=== PATIENT | female | born 1955 | race Caucasian/White ===

== ENCOUNTER → 2019-11-11 09:30 | Outpatient (BNVA) | payer MEDICARE, SELFPAY | PROVIDERS: Family Provider Electrodiagnostic Medicine; PCP Electrodiagnostic Medicine; Referring Provider Family Medicine; Visit Provider Internal Medicine Rheumatology | DX: M06.09 Rheumatoid arthritis without rheumatoid factor, multiple sites (principal); M15.9 Polyosteoarthritis, unspecified; Z79.899 Other long term (current) drug therapy; Z79.52 Long term (current) use of systemic steroids; E11.9 Type 2 diabetes mellitus without complications | CPT/HCPCS: 36415; 85651; 86140; 99213 ==

== ENCOUNTER 2020-04-11 12:56 | Outpatient (CLI) | payer MEDICARE, SELFPAY ==
--- NOTE | 2020-04-11 13:22 | XR_ITS ---
WS: [id number] FINGER LEFT TECHNIQUE: 3 views of the left First finger CLINICAL INFORMATION: CLOSED LEFT THUMB FX/ LEFT THUMB PAIN COMPARISON: March 15, 2019 FINDINGS: Nondisplaced fracture involving the base of the first distal phalanx with intra-articular extension. No significant displacement. Mild widening on the lateral view measuring 1 mm. XR/XR finger LT min 2V [id number] IMPRESSION: Nondisplaced fracture involving the base of the first distal phalanx with intra -articular extension.
== END 2020-04-11 12:57 | disposition home or self-care (01) ==
PROVIDERS: Family Provider Electrodiagnostic Medicine; PCP Electrodiagnostic Medicine; Visit Provider Electrodiagnostic Medicine
DX: S62.502A Fracture of unspecified phalanx of left thumb, initial encounter for closed fracture (principal); X58.XXXA Exposure to other specified factors, initial encounter
CPT/HCPCS: 73140

== ENCOUNTER 2020-04-13 14:21 | Outpatient (CLI) | payer MEDICARE, SELFPAY ==
--- NOTE | 2020-04-13 14:30 | XR_ITS ---
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 Advanced degenerative narrowing involving the seco nd DIP unchanged. Moderate narrowing involving the third DIP. No significant periarticular erosions. Mild narrowing of the radiocarpal joint. No acute fractures. XR/XR hand RT min 3V* [id number] IMPRESSION: 1. 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 2. Moderate to advanced degenerative narrowing at the second and third DIP jarad nts worse at the second DIP. 3. No acute thumb fractures
== END 2020-04-13 14:22 | disposition home or self-care (01) ==
LOC: RADWPI 14:23
PROVIDERS: Family Provider Electrodiagnostic Medicine; PCP Electrodiagnostic Medicine; Visit Provider Electrodiagnostic Medicine
DX: M19.041 Primary osteoarthritis, right hand (principal)
CPT/HCPCS: 73130

== ENCOUNTER 2021-03-20 13:30 | Outpatient (CLI) | payer MEDICARE, SELFPAY ==
--- NOTE | 2021-03-20 13:41 | XR_ITS ---
WS: [id number] LEFT RIBS, MULTIPLE VIEWS HISTORY: RIB PAIN, LEFT SIDED COMPARISON: None available. Ribs: Nondisplaced anterior LEFT seventh rib fracture. No additional fractures. Lungs and mediastinum: No pneumothorax or pulmonary contusion. No effusion. XR/XR ribs LT 2V* [id number] IMPRESSION: Nondisplaced anterior LEFT seventh rib fracture.
== END 2021-03-20 13:31 | disposition home or self-care (01) ==
PROVIDERS: PCP Electrodiagnostic Medicine; Visit Provider Electrodiagnostic Medicine
DX: S22.32XA Fracture of one rib, left side, initial encounter for closed fracture (principal); X58.XXXA Exposure to other specified factors, initial encounter
CPT/HCPCS: 71100

== ENCOUNTER 2021-07-10 11:40 | Outpatient (CLI) | payer MEDICARE, SELFPAY ==
[2021-07-10 11:00] VITALS: BMI 20.6
--- NOTE | 2021-07-10 12:03 | ECG_ITS ---
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 Interpretive Statements NAME OF STUDY: LEXISCAN SESTAMIBI STRESS TEST INDICATION: Chest Pain, PROCEDURE: At the baseline, the EKG revealed sinus bradycardia rate of 50 bpm. Poor R wave progression. No significant ST-T changes.. The baseline blood pressure was 141/69 mm Hg with a heart rate of50 beats/min. Lexiscan was infused over a period of 20 seconds. A total of 0.4 milligrams of Lexiscan was infused. The stress phase was continued for a total of 5 minutes. Heart rate at the end of the stress phase was 76 with a blood pressure 145/65. The EKG at the peak infusion revealed no significant changes. Sestamibi was injected 20 seconds after the Lexiscan infusion. Blood pressure at the end of the recovery phase was 124/53 with a heart rate of 63 per minute. CONCLUSION: 3 1. No significant EKG changes with the LexiScan infusion 2. No LexiScan induced chest pain or cardiac arrhythmia 3. Normal blood pressure and heart rate response 4. Sestamibi/sestamibi perfusion scan pending; see separate report. Electronically Signed On 07-11-2021 0:59:46 CDT by Pritesh Erickson M.D. [email or web address]
--- NOTE | 2021-07-10 12:05 | NMCV_ITS ---
NM jemma perf SPECT r/s* [id number] Yvette Fajardo Age: 66 Gender: F : 1955 Exam Date: 07/10/2021 13:01 Ordering Phys: Junito Mclean DO Technologist: ANNA Ngo Exam Location: [facility] Indications: CHRONIC PAIN STRESS TEST Please see separate stress test report in [facility] for full findings IMAGE PROTOCOL Rest/Stress 1 Lexiscan Day Radiopharmaceutical Dose (mCi) Administration Site Administered by Rest: Tc-99m 10.6 IV ANNA Littlejohn Sestamibi Stress:Tc-99m 32.7 IV ANNA Littlejohn Sestamibi Rest: 07/10/2021 60 Discovery 630 Stress: 07/10/2021 30 Discovery 630 0.4mg Lexiscan. Images obtained in supine and prone position. SPECT RESULTS Technical Quality: Excellent Raw Data Analysis: Normal Image Corrections: No attenuation or motion correction applied Summed Stress Score: 0 Summed Rest Score: 0 Summed Difference Score: 0 PERFUSION FINDINGS Fairly uniform myocardial tracer uptake with no significant perfusion abnormalities FUNCTIONAL RESULTS (calculated via Gated SPECT) Stress Image LV EF (%): 80 Stress EDV (mL):70 TID: 1.02 Stress ESV (mL):14 FUNCTIONAL FINDINGS: Segmental wall motion analysis revealing no gross wall motion abnormalities IMPRESSIONS 1. Unremarkable myocardial perfusion imaging. 2. Normal LV ejection fraction of 80% 3. LV wall motion analysis revealing no gross wall motion abnormalities. 4. Normal LV volume. No significant coronary ischemia, based on the above findings Dr Pritesh Erickson MD FAC (Electronically Signed) Final Date: 10 July 2021 19:19 S
[2021-07-10] MEDS: regadenoson 0.4 Mg/5 ml Syringe IVP (13:40)
[2021-07-10] MEDS: ondansetron 2 mg/ML SDV 2 mL 4 MG IVP (13:48)
[2021-07-10 13:51] VITALS: BP 124/53; PULSE 63
== END 2021-07-10 11:41 | disposition home or self-care (01) ==
LOC: RAD 11:42 → CDL 11:44
PROVIDERS: PCP Electrodiagnostic Medicine; Visit Provider Electrodiagnostic Medicine
DX: F17.210 Nicotine dependence, cigarettes, uncomplicated (principal); E11.65 Type 2 diabetes mellitus with hyperglycemia; G89.21 Chronic pain due to trauma
CPT/HCPCS: 78452; 93017; A9500; J2405; J2785

== ENCOUNTER 2021-11-25 13:52 | Outpatient (CLI) | payer MEDICARE, SELFPAY ==
--- NOTE | 2021-11-25 13:59 | XR_ITS ---
WS: [id number] XR lumbar spine 6V w f/e [id number] REASON FOR EXAM: LUMBAR BACK PAIN W/RADICULOPATHY/RA FINDINGS: Rotatory scoliosis of the lumbar spine convex to the right. Mild compression deformities of L3 and L2. Mild narrowing of the intervertebral disc spaces L1-L5. Moderately severe narrowing of the L5-S1 disc space. 2 to 3 mm of anterolateral listhesis of L3 on L4. XR/XR lumbar spine 6V w f/e [id number] IMPRESSION: Multilevel degenerative spondylosis.
== END 2021-11-25 13:53 | disposition home or self-care (01) ==
LOC: RAD 13:57
PROVIDERS: PCP Electrodiagnostic Medicine; Visit Provider Electrodiagnostic Medicine
DX: M54.16 Radiculopathy, lumbar region (principal); M06.9 Rheumatoid arthritis, unspecified; M47.816 Spondylosis without myelopathy or radiculopathy, lumbar region
CPT/HCPCS: 72114

== ENCOUNTER 2024-02-26 15:19 | Emergency (ER) | payer MEDICARE, SELFPAY ==
[2024-02-26 15:24] VITALS: BP 150/68; PULSE 59; RESP 16; TEMP 36.8; O2SAT 97; BMI 18.8
--- NOTE | 2024-02-26 16:09 | XRR_ITS ---
PROCEDURE INFORMATION: Exam: XR Right Shoulder Exam date and time: 02/26/2024 4:26 PM Age: 68 years old Clinical indication: Injury or trauma; Blunt trauma (contusions or hematomas); Right; Injury date: 02/26/24; Prior surgery; Surgery date: 6+ months; Patient HX: Fall today; C/O pain RT shoulder and RT ribs; Additional info: Fall/shoulder pain TECHNIQUE: Imaging protocol: Radiologic exam of the right shoulder. Views: 2 or more views. COMPARISON: CR XR ribs RT mn 3V w CXR1V [id number] 02/26/2024 4:22 PM FINDINGS: Bones/joints: Normal. Soft tissues: Normal. XR/XR shoulder RT min 2V* [id number] IMPRESSION: No acute findings.
--- NOTE | 2024-02-26 16:11 | XRR_ITS ---
PROCEDURE INFORMATION: Exam: XR Right Ribs with PA Chest Exam date and time: 02/26/2024 4:22 PM Age: 68 years old Clinical indication: Injury or trauma; Rib area; Blunt trauma (contusions or hematomas); Injury date: 02/26/24; Prior surgery; Surgery date: 6+ months; Surgery type: Right shoulder; Patient HX: Fall today; Tripped over tree root; C/O pain RT ribs and RT shoulder; Pain with movement and breathing; Additional info: Fall/rib pain TECHNIQUE: Imaging protocol: Radiologic exam of the right ribs with PA chest. Views: 3 views COMPARISON: No relevant prior studies available. FINDINGS: Lungs: Mild chronic granulomatous changes. Lungs are free of acute disease. Pleural spaces: Unremarkable. No pleural effusion. No pneumothorax. Heart/Mediastinum: Unremarkable. No cardiomegaly. Bones/joints: Unremarkable. No identifiable rib fracture or other acute osseous or joint abnormality. XR/XR ribs RT mn 3V w CXR1V [id number] IMPRESSION: No acute findings.
--- NOTE | 2024-02-26 16:28 | ED_ITS ---
Documented by User: SILVERIO Wheat 02/26/24 16:32 HPI - Fall General: Chief Complaint: Fall Stated Complaint: fall, rib pain, right arm lac Time Seen by Provider: 02/26/24 15:51 Source: patient Mode of arrival: ambulatory Limitations: no limitations History of Present Illness: Patient is a 68-year-old female who presents to the emergency department complaining of fall onset prior to arrival. Patient states she was working out back when she tripped over a tree root falling onto her right side. She notes skin tears to the right forearm, in which she bandaged herself. She also notes hitting her right rib cage and right shoulder, where she is reporting excruciating pain that is worse with any movement or breathing. She does note history of prior surgery to the right shoulder. Has not taken anything for pain at this time. She does take oxycodone and morphine at home, though did not take today. She denies any other pertinent medical history, is not currently on a blood thinner. No other injuries from the fall. She did not strike her head or lose consciousness. reports patient is at baseline mentation, no neurological deficits noted. MD complaint: fall Onset (ago): minute(s) Fall from: standing Fall witnessed: yes, by family Place fall occurred: home Loss of consciousness: None Prolonged down time: no Symptoms prior to fall: none Context: tripped/slipped Location of injury: chest Location of injury - extremities: Right: shoulder Associated symptoms-after fall: Denies abdominal pain, chest pain, headache(s), lightheadedness or neck pain Review of Systems General: Reports: 10 or more systems reviewed and unremarkable except in HPI and below Const: Reports: other (Fall); Denies: fever(s), chills or fatigue Eyes: Denies: change in vision ENMT: Denies: throat pain, ear or mastoid pain or nasal discharge Card: Denies: chest pain, palpitations, swelling of feet/ankles or lightheadedness Resp: Denies: dyspnea, productive cough or wheezing GI: Denies: abdominal pain, nausea, vomiting, diarrhea or constipation : Denies: flank pain, difficulty voiding, dysuria or urinary frequency Musc: Reports: joint pain (Right shoulder) and other (Right rib pain); Denies: neck pain or back pain Skin/Breast: Reports: new lesions (Skin tear to right forearm); Denies: rash Neuro: Denies: headache(s), numbness in extremities or weakness in extremities PFSH ED PFSH: Medical History Rheumatoid arthritis with rheumatoid factor of multiple sites without organ or systems involvement Social History Smoking and tobacco/nicotine status: current every day tobacco/nicotine user cigarettes Packs smoked per day: 1 Alcohol intake: never Lives independently: No Household members: significant other Marital status: / Current occupational status: disabled Physical Exam Const: COMMON NORMALS: no acute distress, patient oriented x3 and no limitat ions GENERAL APPEARANCE: cooperative, comfortable and well developed ORIENTATION/CONSCIOUSNESS: Yes awake, Yes oriented to person, Yes oriented to place and Yes oriented to time HENMT: COMMON NORMALS: normocephalic, atraumatic and hearing grossly normal bilaterally HEAD & SCALP: normocephalic and atraumatic OTHER: No signs of face or head trauma Eye: COMMON NORMALS: Equal, round and reactive pupils present, EOMs intact bilaterally and conjunctivae normal CONJUNCTIVA: Yes conjunctivae normal PUPIL: Yes Equal, round and reactive pupils present Neck/C-Spine: COMMON NORMALS: full ROM, supple and no JVD OTHER: Cervical range of motion intact with no pain Chest: COMMONS NORMALS: normal inspection of the chest OTHER: Moderate to severe tenderness to palpation about the right lateral chest, no crepitus or obvious deformities noted. Resp: COMMON NORMALS: No use of accessory muscles OTHER: Shallow breathing due to pain, bilateral expiratory wheezes at the bases Cardio: COMMON NORMALS: no JVD, regular rate, regular rhythm, No clicks present (Cardio), No murmurs present (Cardio) and No rub (Cardio) RATE: regular rate RHYTHM: regular rhythm Back/Pelvis: COMMON NORMALS: thoracic and lumbar spine normal to inspection, no thoracic nor lumbar tenderness and thoraco-lumbar ROM normal Extremity: COMMON NORMALS: normal to inspection, full ROM and capillary refill normal Neuro: COMMON NORMALS: patient oriented x3, CN's II-XII intact bilaterally, moves all extremities, no focal motor deficits and no sensory deficits noted SENSORIUM/ORIENTATION: Yes oriented to person, Yes oriented to place and Yes oriented to time Psych: COMMON NORMALS: mental status grossly normal and Normal thought process present THOUGHT PROCESS: Normal thought process present Skin: NARRATIVE SKIN EXAM: Nonbleeding skin tear noted to right forearm, bandaged appropriately on arrival Course Vital Signs: Vital signs: Vital Signs Temperature 98.3 F 02/26/24 15:24 Pulse Rate 59 L 02/26/24 15:24 Respiratory Rate 16 02/26/24 16:38 Blood Pressure 157/78 02/26/24 18:02 Pulse Oximetry 93 02/26/24 18:02 Oxygen Delivery Me thod Room Air 02/26/24 15:24 MDM - Fall Lab Data Radiology Impressions Shoulder X-Ray 02/26/24 16:09 IMPRESSION: No acute findings. Ribs X-Ray 02/26/24 16:11 IMPRESSION: No acute findings. Chest CT 02/26/24 17:02 IMPRESSION: 1. Age-indeterminate cortical buckling of the right anterior 3rd rib. Correlation with point tenderness is recommended. No evidence of segmental rib fracture. No pneumothorax or hemothorax. 2. Mild-moderate centrilobular emphysematous changes. The presence of pulmonary emphysema on CT is an independent risk factor for lung cancer. In the absence of a history or active diagnosis of lung cancer, it is recommended that this patient with emphysema be evaluated for enrollment in a low dose CT lung cancer screening program. Discharge Plan Discharge Patient Disposition: Home Clinical Impression: Contusion of rib on right side Qualifiers: Encounter type: initial encounter Qualified Code(s): S20.211A - Contusion of right front wall of thorax, initial encounter Skin tear of right forearm without complication Qualifiers: Encounter type: initial encounter Qualified Code(s): S51.811A - Laceration without foreign body of right forearm, initial encounter Emphysema of lung Qualifiers: Emphysema type: unspecified Qualified Code(s): J43.9 - Emphysema, unspecified Condition: Stable Prescriptions: No Action oxycodone 15 mg tablet 15 mg PO Q8H PRN (Reason: Pain) glipizide 10 mg tablet 10 mg PO QAM prednisone 1 mg tablet 1 mg PO DAILY escitalopram oxalate 20 mg tablet 20 mg PO QPM Jardiance 25 mg tablet 25 mg PO DAILY Discharge Orders: Discharge ED (Routine); Ordered 02/26/24 Ordered By: Marcela Linares Referrals: Junito Mclean DO [Primary Care Provider] - Patient Instructions: Rib Contusion (ED) Activity Restrictions/Additional Instructions: As we discussed you can continue your normal home pain medications as needed for discomfort. Avoid wrapping your chest. Your CT scan today did show moderate emphysematous changes and they did recommend enrollment in a low-dose CT lung cancer screening program. You can speak to your primary care provider in regards to this. Sign Out Sign Out Data: Patient Sign Out occurred on 02/26/24 at 17:01. Patient's care was discussed, and care was transferred from SILVERIO Wheat to SILVERIO Frazier. Coding Level of Care Code ED Lead Shipper for Chg Fwd Documented by User: SILVERIO Frazier 02/29/24 09:33 HPI - Fall General: Chief Complaint: Fall Stated Complaint: fall, rib pain, right arm lac Time Seen by Provider: 02/26/24 15:51 PFSH ED PFSH: Medical History Rheumatoid arthritis with rheumatoid factor of multiple sites without organ or systems involvement Social History Smoking and tobacco/nicotine status: current every day tobacco/nicotine user cigarettes Packs smoked per day: 1 Alcohol intake: never Lives independently: No Household members: significant other Marital status: / Current occupational status: disabled Course Vital Signs: Vital signs: Vital Signs Temperature 98.3 F 02/26/24 15:24 Pulse Rate 59 L 02/26/24 15:24 Respiratory Rate 16 02/26/24 16:38 Blood Pressure 157/78 02/26/24 18:02 Pulse Oximetry 93 02/26/24 18:02 Oxygen Delivery Me thod Room Air 02/26/24 15:24 MDM - Fall Medical Decision Making I assumed care from Facundo Hernandez PA-C. Pending CT chest read. Her CT chest showing an age-indeterminate buckling of her right anterior third rib. Clinically she has no tenderness here. Most of her tenderness is to her lower right anterior lateral ribs. She states she has known previous rib fractures. Vital signs are stable. Discussed emphysematous changes on her CT scan and recommendation for CT lung screening through primary care. She chronically takes oxycodone at home that she can continue as needed for discomfort. Right forearm skin tear irrigated and dressed. Lab Data Radiology Impressions Shoulder X-Ray 02/26/24 16:09 IMPRESSION: No acute findings. Ribs X-Ray 02/26/24 16:11 IMPRESSION: No acute findings. Chest CT 02/26/24 17:02 IMPRESSION: 1. Age-indeterminate cortical buckling of the right anterior 3rd rib. Correlation with point tenderness is recommended. No evidence of segmental rib fracture. No pneumothorax or hemothorax. 2. Mild-moderate centrilobular emphysematous changes. The presence of pulmonary emphysema on CT is an independent risk factor for lung cancer. In the absence of a history or active diagnosis of lung cancer, it is recommended that this patient with emphysema be evaluated for enrollment in a low dose CT lung cancer screening program. All radiology interpretation(s) finalized by discharge Discharge Plan Discharge Patient Disposition: Home Clinical Impression: Contusion of rib on right side Qualifiers: Encounter type: initial encounter Qualified Code(s): S20.211A - Contusion of right front wall of thorax, initial encounter Skin tear of right forearm without complication Qualifiers: Encounter type: initial encounter Qualified Code(s): S51.811A - Laceration without foreign body of right forearm, initial encounter Emphysema of lung Qualifiers: Emphysema type: unspecified Qualified Code(s): J43.9 - Emphysema, unspecified Condition: Stable Prescriptions: No Action oxycodone 15 mg tablet 15 mg PO Q8H PRN (Reason: Pain) glipizide 10 mg tablet 10 mg PO QAM prednisone 1 mg tablet 1 mg PO DAILY escitalopram oxalate 20 mg tablet 20 mg PO QPM Jardiance 25 mg tablet 25 mg PO DAILY Discharge Orders: Discharge ED (Routine); Ordered 02/26/24 Ordered By: Marcela Linares Referrals: Junito Mclean DO [Primary Care Provider] - Patient Instructions: Rib Contusion (ED) Activity Restrictions/Additional Instructions: As we discussed you can continue your normal home pain medications as needed for discomfort. Avoid wrapping your chest. Your CT scan today did show moderate emphysematous changes and they did recommend enrollment in a low-dose CT lung cancer screening program. You can speak to your primary care provider in regards to this. Sign Out Sign Out Data: Patient Sign Out occurred on 02/26/24 at 17:01. Patient's care was discussed, and care was transferred from SILVERIO Wheat to SILVERIO Frazier. Coding Level of Care Code ED Lead Shipper for Florencio Alaniz
[2024-02-26 16:38] VITALS: RESP 16; O2SAT 95
[2024-02-26] MEDS: orphenadrine 30 mg/mL Inj 2 mL 60 MG IM (16:38)
[2024-02-26] MEDS: morphine 4 mg/mL SDV 1 mL IM (16:38)
--- NOTE | 2024-02-26 17:02 | CTR_ITS ---
PROCEDURE INFORMATION: Exam: CT Chest Without Contrast; Diagnostic Exam date and time: 02/26/2024 5:19 PM Age: 68 years old Clinical indication: Injury or trauma; Fall; Blunt trauma (contusions or hematomas); Additional info: Trip/fall; Severe R rib pain TECHNIQUE: Imaging protocol: Diagnostic computed tomography of the chest without contrast. Radiation optimization: All CT scans at this facility use at least one of these dose optimization techniques: automated exposure control; mA and/or kV adjustment per patient size (includes targeted exams where dose is matched to clinical indication); or iterative reconstruction. COMPARISON: CR XR ribs RT mn 3V w CXR1V [id number] 02/26/2024 4:22 PM RADIATION DOSE METRICS: Total DLP (mGy-cm): 328.83 FINDINGS: Thyroid: Grossly unremarkable. Lungs: No focal consolidation. No pneumothorax. Mild-moderate centrilobular emphysematous changes. Pleural spaces: No pleural effusion. Heart: No cardiomegaly. No pericardial effusion. Coronary arteries: No evidence of coronary artery calcification. Mediastinal space: Trachea and airway are grossly patent. No evidence of mediastinal hemorrhage or hematoma. Lymph nodes: No evidence of mediastinal adenopathy. Evaluation for hilar adenopathy is limited by lack of IV contrast. Vasculature: No evidence of aneurysmal dilatation of the thoracic aorta. Evaluation for acute vascular injury or thrombosis is limited by lack of IV contrast. Bones/joints: Age-indeterminate cortical buckling of the right anterior 3rd rib (images 29-30 of series 3). Correlation with point tenderness is recommended. Scapulas are intact. Thoracic spine is intact. Soft tissues: No evidence of fluid collection or hematoma in the superficial soft tissues. Other findings: No evidence of acute abnormality in the upper abdomen. CT/CT chest wo con [id number] IMPRESSION: 1. Age-indeterminate cortical buckling of the right anterior 3rd rib. Correlation with point tenderness is recommended. No evidence of segmental rib fracture. No pneumothorax or hemothorax. 2. Mild-moderate centrilobular emphysematous changes. The presence of pulmonary emphysema on CT is an independent risk factor for lung cancer. In the absence of a history or active diagnosis of lung cancer, it is recommended that this patient with emphysema be evaluated for enrollment in a low dose CT lung cancer screening program.
[2024-02-26 17:55] VITALS: BP 157/78; O2SAT 93
[2024-02-26 18:02] VITALS: BP 157/78; O2SAT 93
== END 2024-02-26 18:04 | disposition home or self-care (01) ==
PROVIDERS: Emergency Provider Physician Assistant; PCP Electrodiagnostic Medicine
DX: S20.211A Contusion of right front wall of thorax, initial encounter (principal); S51.811A Laceration without foreign body of right forearm, initial encounter; J43.9 Emphysema, unspecified; Z79.84 Long term (current) use of oral hypoglycemic drugs; F17.210 Nicotine dependence, cigarettes, uncomplicated; W01.0XXA Fall on same level from slipping, tripping and stumbling without subsequent striking against object, initial encounter
CPT/HCPCS: 71101; 71250; 73030; 96372; 99284; J2270; J2360

== ENCOUNTER 2024-05-23 15:00 | Outpatient (RCR) | payer MEDICARE, SELFPAY | END 2024-06-18 23:59 | disposition home or self-care (01) | LOC: SPT 15:00 | PROVIDERS: PCP Electrodiagnostic Medicine; Visit Provider Electrodiagnostic Medicine | DX: R29.6 Repeated falls (principal) | CPT/HCPCS: 97110; 97112; 97161 ==

== ENCOUNTER 2024-06-23 16:22 | Outpatient (RCR) | payer MEDICARE, SELFPAY | END 2024-07-18 23:59 | disposition home or self-care (01) | LOC: SPT 16:22 | PROVIDERS: PCP Electrodiagnostic Medicine; Visit Provider Electrodiagnostic Medicine | DX: R29.6 Repeated falls (principal) | CPT/HCPCS: 97110; 97112 ==

== ENCOUNTER 2024-07-19 06:00 | Outpatient (RCR) | payer MEDICARE, SELFPAY | END 2024-08-05 23:59 | disposition home or self-care (01) | LOC: SPT 06:00 | PROVIDERS: PCP Electrodiagnostic Medicine; Visit Provider Electrodiagnostic Medicine | DX: R29.6 Repeated falls (principal) | CPT/HCPCS: 97110; 97112 ==

== ENCOUNTER 2025-06-30 13:05 | Emergency (ER) | payer MEDICARE, SELFPAY ==
--- OUTSIDE RECORDS SUMMARY | 2005-11-18 05:30 | XMS_ITS | Continuity of Care Document ---
Author Organization [facility] Address [address] [place] [id number] Phone Care Team Providers Care Consulting Psychiatrist Name Role Phone Dmitry Kirk Unavailable Unavailable Advance Directives Directive Yes / No Effective Date File Name No Information Encounters Encounter Description Practice Location Reason(s) For Visit Diagnoses Date Provider Providers Copied on Encounter [facility] , [address] [place] [address], [id number], [place] tel:[phone] [facility] No Information Yelena Andres. [address] [place] [address], [id number], [place]. tel:[phone] Referring Provider: Dmitry Kirk, [address] [place] [address], [id number]. tel:[phone] Family History Family Member Type Diagnosis Age At Onset No Information Payers Payer name Insurance type Covered libertarian ID Authoriza tion(s) No Information Social History Type Description Quantity Date Captured Comments Sex Female Smoking Status No Information Chief Complaint And Reason For Visit No Information Reason For Referral Reason For Referral No Information History Of Present Illness Encounter Date Complaint History Of Prese nt Illness No Information Functional Status Date Functional Assessmen t No Information Instructions Date Instruction Additional Infor mation No Information Assessments Type Assessment Date No Information Patient Care Teams Name Effective Dates (start - stop) Status Members No Information
--- NOTE | 2025-06-30 13:08 | XRR_ITS ---
PROCEDURE INFORMATION: Exam: XR Left Shoulder Exam date and time: 06/30/2025 1:24 PM Age: 70 years old Clinical indication: Pain; Shoulder; Left TECHNIQUE: Imaging protocol: Radiologic exam of the left shoulder. Views: 2 or more views. COMPARISON: CT chest wo con [id number] 02/26/2024 5:19 PM FINDINGS: Bones/joints: No acute fracture or dislocation. The glenohumeral joint is within normal limits. Slight elevation of the distal clavicle at the AC joint. No AC joint space widening. Mild subchondral sclerosis of the distal clavicle. Mild cortical sclerosis and lucency involves the greater tuberosity of the humerus. No suspicious osseous lesions. Lungs: Unchanged 7 mm left lung calcification. Soft tissues: No periarticular soft tissue abnormalities. XR/XR shoulder LT min 2V* [id number] IMPRESSION: 1. Degenerative changes associated with the greater tuberosity which may reflect rotator cuff tendinopathy. 2. [id number]-da-[id number] degenerative changes in the acromioclavicular joint.
[2025-06-30 13:10] VITALS: BP 159/66; PULSE 82; RESP 17; TEMP 36.8; O2SAT 94; BMI 18.8
--- OUTSIDE RECORDS SUMMARY | 2025-06-30 13:11 | XMS_ITS | Clinical Summary ---
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 Phone Unavailable Primary Care Provider Unavailabl e Allergies No known active allergies Medications morphine (MS CONTIN) 15 mg Controlled Release tablet 10/25/2019 Active morphine (MS CONTIN) 30 mg Controlled Release tablet 10/25/2019 Active oxyCODONE (ROXICODONE) 15 mg tablet 10/25/2019 Active Active Problems Problem Noted Date Diagnosed Date Primary osteoarthritis of right knee 11/21/2019 Greater trochanteric bursitis of right hip 11/21 Social History Tobacco Use Types Packs/Day Years Used Date Smoking Tobacco: Every Day Smokeless Tobacco: Never Comments Unknown Sex and Gender Information Value Date Recorded Sex Assigned at Not on file Legal Sex Female 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 Gender Identity Not on file Sexual Orientation Not on file Last Filed Vital Signs Vital Sign Reading Time Taken Comments Blood Pressure 136/72 11/21/2019 2:40 PM POULTRY SCALDER Pulse 60 11/21/2019 2:40 PM POULTRY SCALDER Temperature - - Respiratory Rate - - Oxygen Saturation - - Inhaled Oxygen Concentration - - Weight 66.7 kg (147 lb) 11/21/2019 2:40 PM POULTRY SCALDER Height 170.2 cm (5' 7 ) 11/21/2019 2:40 PM POULTRY SCALDER Body Mass Index 23.02 11/21/2019 2:40 PM POULTRY SCALDER Plan of Treatment Health Maintenance Due Date Last Done Comments DTAP/TDAP/TD VACCINES (1 - Tdap) 1972 PNEUMOCOCCAL VACCINE 50+ YEARS (1 of 2 - PCV) 04/21/19 72 BREAST CANCER SCREENING 1993 COLORECTAL SCREENING 1998 Colorectal Cancer Screening 1998 FIT-DNA Q 3 years 1998 FIT/FOBT Q 1 year 1998 Flex Sig/CT Colonography Q 5 years 1998 ZOSTER VACCINE (1 of 2) 2003 OSTEOPOROSIS SCREENING 2018 INFLUENZA VACCINE (#1) 2025 RSV VACCINE (60+ or ) (1 - 1-dose 75+ series) 2028 Insurance [employer] [id number] O
--- OUTSIDE RECORDS SUMMARY | 2025-06-30 13:11 | XMS_ITS | Clinical Summary ---
Author Organization [facility] Address [address] 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 MARKETING COORDINATOR Temperature - - Respiratory Rate - - Oxygen Saturation - - Inhaled Oxygen Concentration - - Weight 66.7 kg (147 lb) 11/21/2019 2:40 PM INTERNET MARKETING COORDINATOR Height 170.2 cm (5' 7 ) 11/21/2019 2:40 PM 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 Body Mass Index 23.02 11/21/2019 2:40 PM INTERNET MARKETING COORDINATOR Plan of Treatment Health Maintenance Due Date Last Done Comments DIABETES ANNUAL FOOT EXAM 1971 DIABETES ANNUAL RETINAL EXAM 1971 DIABETES MICROALBUMIN ANNUAL SCREEN 1971 LDL CHOLESTEROL ANNUAL 1971 DTAP/TDAP/TD VACCINES (1 - Tdap) 1972 PNEUMOCOCCAL VACCINE 50+ YEA RS (1 of 2 - PCV) 1972 BREAST CANCER SCREENING 1993 COLORECTAL SCREENING 1998 Colorectal Cancer Screening 1998 FIT-DNA Q 3 years 1998 FIT/FOBT Q 1 year 1998 Flex Sig/CT Colonography Q 5 years 1998 ZOSTER VACCINE (1 of 2) 2003 RSV VACCINE (60+ or ) (1 - Risk 60-74 years 1-dose series) 2013 OSTEOPOROSIS SCREENING 2018 DIABETES HBA1C Q 6 MONTHS 11/09/2024 05/09/2024 INFLUENZA VACCINE (#1) 2025 08/29/2013 COVID-19 Vaccine (3 - season) 06/19/202506/2021, 04/30/2021 Procedures Procedure Name Priority Date/Time Associated Diagnosis Comments HEMOGLOBIN A1C Routine 05/09/2024 2:00 PM CDT from Last 3 Months or Most Recently Relevant to Health Maintenance Results * (ABNORMAL) HEMOGLOBIN A1C (05/09/2024 2:00 PM CDT) ABSTRACTED HGB A1C 7.4 % [facility] Blood us Abstract Provider CHEMISTRY ORDERABLES Edited Re casey - Final [facility] from Last 3 Months or Most Recently Relevant to Health Maintenance
--- NOTE | 2025-06-30 13:43 | W.ED.EXTPRO ---
HPI - Extremity Problem General: Chief complaint: Extremity Injury, Upper Stated complaint: L Shoulder Pain Time Seen by Provider: 06/30/25 13:08 Source: patient Mode of arrival: ambulatory Limitations: no limitations History of Present Illness: Patient is a 70-year-old female presents to ED today for evaluation of left shoulder pain. Patient states she initially injured her shoulder several months ago after falling on it. She states it was treated conservatively by her primary care provider and states pain did fully subside and she has been asymptomatic over the past month or so. She states last night/this morning, she rolled over in bed and immediately began feeling pain in the left shoulder. She is not complaining of numbness, tingling, loss of sensation. MD Complaint: joint pain Onset (ago): day(s) Pain Consistency: constant Location: left and upper extremity Radiation: none Relieving factors: immobilization Exacerbating factors: range of motion Associated symptoms: Reports no associated symptoms; Deny chest pain Related Data Home Medications ?Medication ?Instructions ?Recorded ?Confirmed oxycodone 15 mg tablet 15 mg PO Q8H PRN Pain 11/10/19 02/26/24 empagliflozin 25 mg tablet 25 mg PO DAILY 02/26/24 02/26/24 (Jardiance) escitalopram oxalate 20 mg tablet 20 mg PO QPM 02/26/24 02/26/24 glipizide 10 mg tablet 10 mg PO QAM 02/26/24 02/26/24 prednisone 1 mg tablet 1 mg PO DAILY RA 02/26/24 02/26/24 Previous Rx's ?Medication ?Instructions ?Recorded methylprednisolone 4 mg tablets in See Rx Instructions PO .COMPLEX 06/30/25 a dose pack (Medrol (Deny)) #21 ea Allergies Allergy/AdvReac Type Severity Reaction Status Date / Time No Known Allergies Allergy Verified 02/26/24 15:26 Review of Systems Card: Denies: chest pain Resp: Denies: dyspnea Musc: Reports: joint pain (L shoulder) and limited range of motion (L shoulder); Denies: neck pain, back pain, extremity pain, extremity swelling, joint swelling, joint redness, joint warmth or muscle cramps Neuro: Denies: numbness in extremities, weakness in extremities or sensory changes [facility] ED PFSH: Medical History Rheumatoid arthritis with rheumatoid factor of multiple sites without organ or systems involvement Social History Smoking and tobacco/nicotine status: current every day tobacco/nicotine user cigarettes Packs smoked per day: 1 Alcohol intake: never Lives independently: No Household members: significant other Marital status: / Current occupational status: disabled Physical Exam Const: COMMON NORMALS: no acute distress, average body habitus, patient oriented x3, no limitations, healthy appearing, alert and well nourished GENERAL APPEARANCE: cooperative ORIENTATION/CONSCIOUSNESS: Yes awake, Yes oriented to person, Yes oriented to place and Yes oriented to time Neck/C-Spine: COMMON NORMALS: full ROM CERVICAL SPINE: No pain with cervical ROM Resp: COMMON NORMALS: normal respiratory effort and clear to auscultation bilaterally AUSCULTATION: clear to auscultation bilaterally Cardio: COMMON NORMALS: regular rate and regular rhythm RATE: regular rate RHYTHM: regular rhythm Back/Pelvis: COMMON NORMALS: thoracic and lumbar spine normal to inspection and no thoracic nor lumbar tenderness Extremity: COMMON NORMALS: capillary refill normal GENERAL: Yes normal exam except as noted RIGHT UPPER EXTREMITY: Yes shoulder joint Right shoulder: Yes Right shoulder joint inspection exam (no obvious gross bony deformity noted), Yes Right shoulder joint ROM exam (limited ROM due to discomfort) and Yes Right shoulder joint neurovascular exam (normal) Neuro: COMMON NORMALS: patient oriented x3, moves all extremities, no focal motor deficits and no sensory deficits noted SENSORIUM/ORIENTATION: Yes alert, Yes oriented to person, Yes oriented to place and Yes oriented to time Course Vital Signs: Vital signs: Vital Signs Temperature 98.3 F 06/30/25 13:10 Pulse Rate 82 06/30/25 13:10 Respiratory Rate 17 06/30/25 13:10 Blood Pressure 159/66 06/30/25 13:10 Pulse Oximetry 94 06/30/25 13:10 Oxygen Delivery Me thod Room Air 06/30/25 13:10 MDM - Extremity (Nontraumatic) Medical Decision Making XR showing degenerative changes of the left shoulder without acute injury. She will be instructed to follow-up with her primary care provider for further evaluation which could include continued conservative therapy, physical therapy, advanced imaging, referral to orthopedics, etc. Medical Records I reviewed the patient's medical records. Lab Data Radiology Impressions Shoulder X-Ray 06/30/25 13:08 IMPRESSION: 1. Degenerative changes associated with the greater tuberosity which may reflect rotator cuff tendinopathy. 2. [id number] degenerative changes in the acromioclavicular joint. All radiology interpretation(s) finalized by discharge Discharge Plan Discharge Patient Disposition: Home Clinical Impression: Acute pain of left shoulder Condition: Stable Prescriptions: New methylprednisolone [Medrol (Deny)] 4 mg tablets,dose pack See Rx Instructions .ROUTE .COMPLEX Qty: 21 0RF Rx Instructions: orally per package directions No Action oxycodone 15 mg tablet 15 mg PO Q8H PRN (Reason: Pain) glipizide 10 mg tablet 10 mg PO QAM prednisone 1 mg tablet 1 mg PO DAILY escitalopram oxalate 20 mg tablet 20 mg PO QPM Jardiance 25 mg tablet 25 mg PO DAILY Discharge Orders: Discharge ED (Routine); Ordered 06/30/25 Ordered By: Marcela Linares Referrals: Junito Mclean DO [Primary Care Provider, Family Practice] Patient Instructions: Patient Portal & Ruth Instructions Activity Restrictions/Additional Instructions: Your x-ray today showed chronic degenerative changes of your left shoulder. As we discussed, I would like you to follow-up with your primary care provider for further evaluation which could include conservative management, MRI, referral to orthopedics, physical therapy, etc. We will place you on steroids to help with discomfort. You may also begin taking an [id number] anti-inflammatory such as naproxen or ibuprofen. Watch diet carefully as the steroids can increase sugars if you are a diabetic. 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
--- NOTE | 2025-06-30 14:58 | PC.NURSE ---
PATIENT DISGRUNTLED WITH STAFF STATING SHES BEEN HERE FOR 3 HOURS AND ONE PATIENT CAN SHUT DOWN THIS WHOLE HOSPITAL. THIS NURSE INFORMED PATIENT THAT HER REGULAR ASSIGNED NURSE HAS BEEN CARING FOR A TRAUMA AND ICU PATIENT. PATIENT CONTINUES TO ARGUE WITH STAFF. THIS NURSE STATED THAT PATIENT HAS MEDICATIONS STILL LEFT TO BE ADMINISTERED AND ASKED IF SHE WOULD LIKE THEM. PATIENT STATES YES, UNLESS IT'S GOING TO TAKE ANOTHER 3-4 HOURS. MEDS ADMINISTERED BY MARCO WALLIS.
--- NOTE | 2025-06-30 15:12 | PC.NURSE ---
UPON D/C PT MADE STATEMENT TO FAMILY 'NEXT TIME I COME IN HERE REMIND ME TO COME BY HELICOPTER, ILL GET SEEN FASTER'.
== END 2025-06-30 15:24 | disposition home or self-care (01) ==
PROVIDERS: Emergency Provider Physician Assistant; PCP Electrodiagnostic Medicine
DX: M25.512 Pain in left shoulder (principal); F17.210 Nicotine dependence, cigarettes, uncomplicated
CPT/HCPCS: 73030; 96372; 99284; J1100; J1885